=== PATIENT | female | born 1955 | race Two or more races ===

== ENCOUNTER 2023-10-15 13:37 | Inpatient (IN) | payer OTHER ==
[~2023-10-15] VITALS: Ht 152.4 cm; Wt 77.6 kg
[2023-10-15 14:15] VITALS: RESP 18; O2SAT 89
[2023-10-15] MEDS: MORPHINE SULFATE INJ 2 MG/ml SYRG IV ONE ×2 (15:02→21:24)
[2023-10-15] MEDS: ONDANSETRON HCL 4 MG/2 ML VIAL IV ONE ×2 (15:03→21:23)
[2023-10-15 15:23] LABS: Basophils # (auto) 0 10 ^3/uL (0-0.2); Basophils % (auto) 0.2 % (0.0-2.0); Eosinophils # (auto) 0.1 10 ^3/uL (0-0.8); Eosinophils % (auto) 0.7 % (0.0-7.0); Hematocrit 39.2 % (36.0-46.0); Hemoglobin 12.9 g/dL (12.2-16.2); Lymphocytes # (auto) 1.1 10 ^3/uL (0.4-5.4); Lymphocytes % (auto) 11.8 % (10.0-50.0); Mean Corpuscular Hemoglobin 28.9 pg (28.0-32.0); Mean Corpuscular Hgb Conc. 32.8 g/dL (32.0-36.0); Mean Corpuscular Volume 88.1 fL (80.0-100.0); Monocytes # (auto) 0.6 10 ^3/uL (0-1.3); Monocytes % (auto) 6.2 % (0.0-12.0); Neutrophils # (auto) 7.7 10 ^3/uL (1.6-8.6); Neutrophils % (auto) 81.1 % (37.0-80.0); Red Blood Cells 4.45 10^6/uL (4.0-5.20); Red Cell Distribution Width 13.6 % (11.8-14.3); White Blood Cell 9.5 10^3/uL (4.4-10.8)
[2023-10-15 15:39] LABS: Alanine Aminotransferase 42 U/L (7-40); Albumin 4.3 g/dL (3.2-4.8); Alkaline Phosphatase 172 U/L (46-116); Anion Gap 8 (5-15); Aspartate Aminotransferase 32 U/L (13-40); BUN/Creatinine Ratio 18.1 (10.0-20.0); Bilirubin, Total 0.7 mg/dL (0.2-1.0); Blood Urea Nitrogen 13 mg/dL (9-23); Calcium 9.6 mg/dL (8.5-10.1); Carbon Dioxide 28 mmol/L (20-30); Chloride 105 mmol/L (98-107); Glucose 86 mg/dL (74-106); Potassium 3.4 mmol/L (3.5-5.1); Sodium 141 mmol/L (136-145); Total Protein 6.8 g/dL (5.7-8.2)
[2023-10-15] MEDS ORDERED: DEXTROSE 10% 1,000 ML IV SCH (16:00)
[2023-10-15 16:10] LABS: Urine Bacteria None Seen /hpf (None Seen)
[2023-10-15] MEDS: DEXTROSE 10% 1,000 ML IV ONE (16:16)
[2023-10-15 16:24] LABS: Urine Blood Negative /uL (Negative); Urine Clarity Clear (Clear); Urine Color Colorless (Yellow); Urine Hyaline Cast FEW /lpf (0 - 2); Urine Protein, UAD Negative (Negative); Urine Specific Gravity 1.006 (1.001-1.035); Urine Urobilinogen Normal (Negative); Urine WBC 1 /hpf (0 - 5); Urine pH 6.5 (5.0-9.0)
[2023-10-15] MEDS ORDERED: MORPHINE SULFATE INJ 2 MG/ml SYRG IV PRN (17:30)
[2023-10-15] MEDS ORDERED: NITROGLYCERIN 0.4 MG SL TAB SL PRN (17:30)
[2023-10-15] MEDS ORDERED: DEXTROSE (50%) 50ML SYRG IV PRN (17:30)
[2023-10-15] MEDS ORDERED: FURO40TA4 PO (18:30)
[2023-10-15] MEDS ORDERED: RANO500T3 PO (18:30)
[2023-10-15] MEDS ORDERED: DICY10CA PO (18:30)
[2023-10-15] MEDS ORDERED: ATOR40TA52 PO (18:30)
[2023-10-15] MEDS ORDERED: DICY20TA PO (18:30)
[2023-10-15] MEDS ORDERED: NAP500T PO (18:30)
[2023-10-15] MEDS ORDERED: LISI-285 PO (18:30)
[2023-10-15] MEDS ORDERED: GABA-1250 PO (18:30)
[2023-10-15] MEDS ORDERED: PANT40T PO (18:30)
[2023-10-15] MEDS ORDERED: METO5TAB2 PO (18:30)
[2023-10-15] MEDS ORDERED: NEBI5TAB13 PO (18:30)
[2023-10-15] MEDS ORDERED: ASPI-325 PO (18:30)
[2023-10-15] MEDS ORDERED: LINA290C PO (18:30)
[2023-10-15] MEDS ORDERED: SUCR1TAB PO (18:30)
[2023-10-15] MEDS ORDERED: hydrALAZINE HCL 20 MG/ML VL IV PRN (18:30)
[2023-10-15] MEDS ORDERED: FLUT1INH6 INH (18:30)
[2023-10-15 19:13] LABS: Triglycerides 112 mg/dL (< 150)
[2023-10-15 19:14] LABS: LDL Cholesterol 74 mg/dL (< 100)
[2023-10-15 19:15] LABS: Cholesterol 148 mg/dL (< 200); HDL Cholesterol 57 mg/dL (40-59)
[2023-10-15 20:00] VITALS: PULSE 84; RESP 14; O2SAT 99
[2023-10-15] MEDS: POTASSIUM EFFERVESENT TAB 25 MEQ PO ONE (20:36)
[2023-10-15] MEDS: ACETAMINOPHEN 325 MG TAB PO PRN (20:44)
[2023-10-15] MEDS: hydrALAZINE HCL 20 MG/ML VL ONE (20:54)
[2023-10-15] MEDS: PANTOPRAZOLE 40 MG TAB PO SCH (22:00)
[2023-10-15 22:19] VITALS: BP 148/42; PULSE 73; RESP 16; TEMP 98.2; O2SAT 100; O2SAT 99
[2023-10-15] MEDS: GABAPENTIN 300 MG CAP PO SCH (22:48)
[2023-10-15] MEDS: RANOLAZINE ER 500 MG TAB PO SCH (22:48)
[2023-10-15] MEDS: NAPROXEN 500 MG TAB PO SCH (22:48)
[2023-10-15] MEDS: ACCU-CHEK COMFORT CURVE STRIP VI SCH (22:49)
[2023-10-15] MEDS: METOPROLOL TARTRATE 25 MG TAB PO SCH (22:49)
[2023-10-15] MEDS: InsuLIN REG 1unit/0.01ml Soln (100units/ml) SC SCH (23:13)
[2023-10-16] VITALS (8 sets, daily range): BP systolic 107–161; BP diastolic 40–72; PULSE 18–98; RESP 16–21; TEMP 98.1–98.8; O2SAT 91–98
[2023-10-16] MEDS: SUCRALFATE 1 GM TAB PO SCH (06:15)
[2023-10-16 06:46] LABS: Albumin 3.7 g/dL (3.2-4.8); Alkaline Phosphatase 137 U/L (46-116); Anion Gap 6 (5-15); Aspartate Aminotransferase 46 U/L (13-40); Calcium 9.3 mg/dL (8.5-10.1); Carbon Dioxide 28 mmol/L (20-30); Chloride 103 mmol/L (98-107); Glucose 73 mg/dL (74-106); Sodium 137 mmol/L (136-145); Total Protein 6.4 g/dL (5.7-8.2)
[2023-10-16 06:51] LABS: Alanine Aminotransferase 31 U/L (7-40); BUN/Creatinine Ratio 9.8 (10.0-20.0); Bilirubin, Total 0.7 mg/dL (0.2-1.0); Blood Urea Nitrogen 8 mg/dL (9-23); Potassium 4.8 mmol/L (3.5-5.1)
[2023-10-16 07:56] LABS: Basophils # (auto) 0 10 ^3/uL (0-0.2); Basophils % (auto) 0.5 % (0.0-2.0); Eosinophils # (auto) 0.1 10 ^3/uL (0-0.8); Eosinophils % (auto) 3.2 % (0.0-7.0); Hematocrit 36.5 % (36.0-46.0); Lymphocytes # (auto) 1.1 10 ^3/uL (0.4-5.4); Lymphocytes % (auto) 23.5 % (10.0-50.0); Monocytes # (auto) 0.4 10 ^3/uL (0-1.3); Monocytes % (auto) 8.2 % (0.0-12.0); Neutrophils % (auto) 64.6 % (37.0-80.0); Red Blood Cells 4.15 10^6/uL (4.0-5.20); Red Cell Distribution Width 13.5 % (11.8-14.3); White Blood Cell 4.7 10^3/uL (4.4-10.8)
[2023-10-16] MEDS: ENOXAPARIN SOD 40 MG/0.4 ML SYRINGE SC SCH (09:39)
[2023-10-16] MEDS: ASPirin-EC 81 mg tab PO SCH (09:39)
[2023-10-16] MEDS: LISINOPRIL 20 MG TAB PO SCH (09:40)
[2023-10-16] MEDS: ATORVASTATIN 20 MG TAB PO SCH (09:40)
[2023-10-16] MEDS: hydroCHLOROthiazide 25 MG TAB PO SCH (09:42)
[2023-10-16] MEDS: FUROSEMIDE 40 MG TAB PO SCH (09:43)
[2023-10-16] MEDS: LINZESS 290MCG CAPSULE PO SCH (10:00)
[2023-10-16] MEDS ORDERED: PATIENTS OWN MEDICATION (Lisinopril & Hydrochlorothiazi (Lisinopril/Hydrochlorothi) 1 TAB) PO SCH (10:00)
[2023-10-16] MEDS: DICYCLOMINE HCL 10 MG CAP PO PRN (20:01)
[2023-10-17] VITALS (10 sets, daily range): BP systolic 108–152; BP diastolic 29–71; PULSE 69–83; RESP 18–21; TEMP 97.9–98.7; O2SAT 90–96
[2023-10-17] MEDS: DOCUSATE SOD 100 MG CAP PO PRN (06:31)
[2023-10-17] MEDS: LACTULOSE 20Gm/30ML SOLN PO ONE (11:55)
[2023-10-17] MEDS: INSULIN LANTUS (GLARGINE) 1 /0.01ml (100units/ml) SC SCH (21:17)
[2023-10-18] VITALS (7 sets, daily range): BP systolic 94–131; BP diastolic 34–68; PULSE 63–77; RESP 16–20; TEMP 97.3–98.1; O2SAT 90–93
[2023-10-18 09:52] LABS: Hepatitis B Surface Antigen Negative (Negative)
[2023-10-18 10:13] LABS: Hepatitis C Antibody Negative (Negative)
== END 2023-10-18 17:18 | disposition home or self-care (01) | DRG 639 ==
LOC: ER 13:37 → EDBD 13:37 → TELE 17:34 → TELE-WESTW 21:58
PROVIDERS: ADMIT Nurse Practitioner Family; ATTEND Family Medicine
DX: E11.649 Type 2 diabetes mellitus with hypoglycemia without coma (principal); I65.23 Occlusion and stenosis of bilateral carotid arteries; E87.6 Hypokalemia; I10 Essential (primary) hypertension; E66.01 Morbid (severe) obesity due to excess calories; E86.0 Dehydration; R74.8 Abnormal levels of other serum enzymes; Z88.0 Allergy status to penicillin; Z91.148 Patient's other noncompliance with medication regimen for other reason; Z95.2 Presence of prosthetic heart valve; Z68.33 Body mass index [BMI] 33.0-33.9, adult; Z83.3 Family history of diabetes mellitus; Z82.49 Family history of ischemic heart disease and other diseases of the circulatory system; Z80.9 Family history of malignant neoplasm, unspecified
CPT/HCPCS: 36415; 70450; 72125; 76705; 80053; 80061; 81001; 82962; 83036; 84443; 85025; 86803; 87340; 93005; 93306; 93886; 96361; 96374; 96375; 97116; 97163; 97530; G0378; J1815; J2405

== ENCOUNTER 2024-05-31 14:53 | Inpatient (IN) | payer OTHER, MEDICAID ==
[~2024-05-31] VITALS: Ht 152.4 cm; Wt 71.5 kg
[~2024-05-31 14:53] MED LIST: ASPI-325 PO; ATOR40TA52 PO; DICY10CA PO; DICY20TA PO; FLUT1INH6 INH; FURO40TA4 PO; GABA-1250 PO; LINA290C PO; LISI-285 PO; METO5TAB2 PO; NAP500T PO; NEBI5TAB13 PO; PANT40T PO; RANO500T3 PO; SUCR1TAB PO
--- NOTE | 2024-05-31 15:26 | ECG ---
[facility] Test Date: 2024-05-31 Test Time: 15:17:32 Pat Name: CHRISTOPHER VILLARREAL Department: ER Room: 0240 Gender: F Collateral Clerk: GP : 1955 Requested By: PRATEEK NIX Order Number: [id number] Reading MD: Jose Antonio Santana Measurements Intervals [place] Rate: 86 P: 49 UT: 127 QRS: 16 QRSD: 93 T: 17 QT: 374 QTc: 448 Interpretive Statements Sinus rhythm Left ventricular hypertrophy Electronically Signed On 06-02-2024 10:26:08 PST by Jose Antonio Santana Please click the below link to view image of tracing.
[2024-05-31 15:47] LABS: Urine Bacteria None Seen /hpf (None Seen)
--- NOTE | 2024-05-31 15:55 | DVH ---
CHEST RADIOGRAPH Indication: CP Technique: Single frontal view of the chest was obtained Comparison: None FINDINGS: Lines and Tubes: None. Midline sternotomy wires. Lungs: No focal consolidation. Pleura: No effusion. No pneumothorax. Cardiomediastinal contours: Unremarkable Bones: No acute osseous abnormality. IMPRESSION: 1. No radiographic evidence of acute cardiopulmonary disease. HS:Y
[2024-05-31 16:15] LABS: Urine Blood Negative /uL (Negative); Urine Clarity Clear (Clear); Urine Color Light-Yellow (Yellow); Urine Protein, UAD Negative (Negative); Urine Specific Gravity 1.012 (1.001-1.035); Urine Urobilinogen Normal (Negative); Urine WBC 1 /hpf (0 - 5)
[2024-05-31 16:38] LABS: Basophils # (auto) 0 10 ^3/uL (0-0.2); Basophils % (auto) 0.4 % (0.0-2.0); Eosinophils # (auto) 0.1 10 ^3/uL (0-0.8); Eosinophils % (auto) 1.5 % (0.0-7.0); Hematocrit 37.5 % (36.0-46.0); Hemoglobin 12.1 g/dL (12.2-16.2); Lymphocytes # (auto) 1.1 10 ^3/uL (0.4-5.4); Mean Corpuscular Hemoglobin 29.2 pg (28.0-32.0); Mean Corpuscular Hgb Conc. 32.4 g/dL (32.0-36.0); Monocytes # (auto) 0.6 10 ^3/uL (0-1.3); Monocytes % (auto) 7.6 % (0.0-12.0); Neutrophils # (auto) 5.8 10 ^3/uL (1.6-8.6); Neutrophils % (auto) 76.5 % (37.0-80.0); Nucleated Red Blood Cells % 0.1 %; Platelet Count (auto) 276 10^3/uL (140-450); Red Blood Cells 4.16 10^6/uL (4.0-5.20); Red Cell Distribution Width 13.7 % (11.8-14.3); White Blood Cell 7.6 10^3/uL (4.4-10.8)
[2024-05-31 16:55] LABS: Albumin 4.1 g/dL (3.2-4.8); Anion Gap 8 (5-15); Aspartate Aminotransferase 37 U/L (13-40); BUN/Creatinine Ratio 24.1 (10.0-20.0); Bilirubin, Total 0.4 mg/dL (0.2-1.0); Blood Urea Nitrogen 19 mg/dL (9-23); Calcium 10.1 mg/dL (8.7-10.4); Carbon Dioxide 28 mmol/L (20-31); Chloride 100 mmol/L (98-107); Potassium 4.1 mmol/L (3.5-5.1); Sodium 136 mmol/L (136-145)
[2024-05-31 16:56] LABS: Total Protein 6.5 g/dL (5.7-8.2)
[2024-05-31 16:59] LABS: Alanine Aminotransferase 57 U/L (7-40); Alkaline Phosphatase 185 U/L (46-116); Glucose 323 mg/dL (74-106)
--- NOTE | 2024-05-31 18:19 | ED.PDOC ---
GI ASSESSMENT HPI Comments 68 Y F, with PMHX of HTN, and DM presents to the ED with CC or nausea and vomiting. Patient states that shes has been experiencing nausea and vomiting for x3 months; with associated symptoms of epigastric discomfort. Patient relays, that she has has difficulty eating and feels as if she were choking every time she consumes food. Patient denies any cough, nasal congestion, chills, or fever. Chief Complaint: Nausea/Vomiting Time Seen by MD: 06:00 Primary Care Provider: ? Reviewed Notes: Nurses Notes, Medications, Allergies Allergies: Coded Allergies: Penicillins (Verified Allergy, Unknown, 10/15/23) Home Meds Reported Medications Aspirin (Aspirin Low Dose) 81 Mg Tab, 1 TAB PO DAILY 10/15/23 Naproxen (NAPROSYN TABLET) 500 Mg Tb, 1 TAB PO BID 10/15/23 Furosemide (Furosemide) 40 Mg Tab, 1 TAB PO DAILY 10/15/23 Nebivolol HCl (Nebivolol Hydrochloride) 5 Mg Tab, 1 TAB PO DAILY 10/15/23 Dicyclomine Hcl (Dicyclomine Hcl) 20 Mg Tab, TAB PO 10/15/23 Atorvastatin Calcium (ATORVASTATIN CALCIUM) 40 Mg Tab, 1 TAB PO DAILY 10/15/23 Metoclopramide Hcl (Metoclopramide Hcl) 5 Mg Tab, 1 TAB PO QID 10/15/23 Gabapentin (Gabapentin) 300 Mg Cap, 1 CAP PO TID 10/15/23 Pantoprazole Sodium Sesquihydr (Pantoprazole Sodium) 40 Mg Tab, 1 TAB PO BID 10/15/23 Dicyclomine Hcl (BENTYL CAPSULE) 10 Mg Cp, 1 CAP PO Q6HPRN PRN 10/15/23 Fluticasone Furoate-Vilanterol (Breo Ellipta 200-25 Mcg/INH) 1 Inh Inh, 1 PUFF INH DAILY 10/15/23 Lisinopril & Hydrochlorothiazi (Lisinopril/Hydrochlorothi) 1 Tab Tab, 1 TAB PO DAILY 10/15/23 Sucralfate (Sucralfate) 1 Gm Tab, 1 TAB PO BID 10/15/23 Linaclotide Base (LINZESS) 290 Mcg Cap, 1 CAP PO DAILY 10/15/23 Ranolazine (Ranolazine ER) 500 Mg Tab, 1 TAB PO BID 10/15/23 Information Source: Patient Mode of Arrival: Ambulatory Duration: Days Prehospital treatment: None Quality: None Vomitus: Watery Severity: Mild Recent: None Recent Hx of: None Pain Location: None Modifying Factors: Nothing Associated sign and symptoms: None Past Medical History PAST MEDICAL HISTORY: DM, HTN TAP DANCER History: Denies all TAP DANCER Hx Family History Family History: Unknown Social History Smoker: Non-Smoker Alcohol: Denies ETOH Use Drugs: Denies Drug Use Lives In: Home Constitutional: denies: chills, diaphoresis, fatigue, fever, malaise, sweats, weakness, others EENTM: denies: blurred vision, double vision, ear bleeding, ear discharge, ear drainage, ear pain, ear ringing, eye pain, eye redness, hearing loss, mouth pain, mouth swelling, nasal discharge, nose bleeding, nose congestion, nose pain, photophobia, tearing, throat pain, throat swelling, voice changes, others Respiratory: denies: cough, hemoptysis, orthopnea, SOB at rest, shortness of breath, SOB with excertion, stridor, wheezing, others Cardiovascular: denies: chest pain, dizzy spells, diaphoresis, Dyspnea on exertion, edema, irregular heart beat, left arm pain, lightheadedness, palpitations, PND, syncope, others Gastrointestinal: reports: nausea, poor appetite, vomiting; denies: abdomen distended, abdominal pain, blood streaked bowels, constipated, diarrhea, dysphagia, difficulty swallowing, hematemesis, melena, poor fluid intake, rectal bleeding, rectal pain, others Genitourinary: denies: abnormal vagina bleeding, burning, dyspareunia, dysuria, flank pain, frequency, hematuria, incontinence, pain, , vagina discharge, urgency, others Neurological: denies: dizziness, fainting, headache, left sided numbness, left sided weakness, numbness, paresthesia, pre-existing deficit, right sided num bness, right sided weakness, seizure, speech problems, tingling, tremors, weakness, others Musculoskeletal: denies: back pain, gout, joint pain, joint swelling, muscle pain, muscle stiffness, neck pain, others Integumetry: denies: bruises, change in color, change in hair/nails, dryness, laceration, lesions, lumps, rash, wounds, others Allergic/Immunocompromised: denies: Difficulty Healing, Frequent Infections, Hives, Itching, others Hematologic/Lymphatic: denies: anemia, blood clots, easy bleeding, easy bruising, swollen glands, others Endocrine: denies: excessive hunger, excessive sweating, excessive thirst, excessive urination, flushing, intolerance to cold, intolerance to heat, unexplained weight gain, unexplained weight loss, others Psychiatric: denies: anxiety, bipolar disorder, depression, hopeless, panic disorder, schizophrenia, sleepless, suicidal, others Physical Exam General Appearance: No Apparent Distress, Normal HEENT: Normal ENT Inspection, Pharynx Normal, TMs Normal Neck: Full Range of Motion, Non-Tender, Normal, Normal Inspection Respiratory: Chest Non-Tender, Lungs Clear, No Accessory Muscle Use, No Respiratory Distress, Normal Breath Sounds Cardiovascular: No Edema, No JVD, No Murmur, No Gallop, Normal Peripheral Pulses, Regular Rate/Rhythm Breast Exam: Deferred Gastrointestinal: No Organomegaly, Non Tender, No Pulsatile Mass, Normal Bowel Sounds, Soft Genitalia: Deferred Pelvic: Deferred Rectal: Deferred Extremities: No calf tenderness, Normal capillary refill, Normal inspection, Normal range of motion, Non-tender, No pedal edema Musculoskeletal : Apperance: Normal Neurologic: Alert, cover remover II-XII nml as Tested, No Motor Deficits, Normal Affect, Normal Mood, No Sensory Deficits Cerebellar Function: Normal Reflexes: Normal Skin: Dry, Normal Color, Warm Lymphatic: No Adenopathy Was a procedure done? Was a procedure done?: No GI differential Dx Differential Diagnosis: Appendicitis, Gastritis/PUD, Gastroenteritis, Bacteria l, Viral X-Ray, Labs, Meds, VS Vital Signs Date Time Temp Pulse Resp B/P (MAP) Pulse Ox O2 Delivery O2 Flow Rate FiO2 05/31/24 15:17 86 05/31/24 15:05 98.2 85 18 136/53 (80) 92 Lab Test 05/31/24 17:05 05/31/24 16:04 05/31/24 15:10 Range/Units Troponin I High Sensitivity 119 *H 112 *H </=34 ng/L White Blood Count 7.6 4.4-10.8 10^3/uL Red Blood Count 4.16 4.0-5.20 10^6/uL Hemoglobin 12.1 L 12.2-16.2 g/dL Hematocrit 37.5 36.0-46.0 % Mean Corpuscular Volume 90.0 80.0-100.0 fL Mean Corpuscular Hemoglobin 29.2 28.0-32.0 pg Mean Corpuscular Hemoglobin Concent 32.4 32.0-36.0 g/dL Red Cell Distribution Width 13.7 11.8-14.3 % Platelet Count 276 140-450 10^3/uL Mean Platelet Volume 9.2 6.9-10.8 fL Neutrophils (%) (Auto) 76.5 37.0-80.0 % Lymphocytes (%) (Auto) 14.0 10.0-50.0 % Monocytes (%) (Auto) 7.6 0.0-12.0 % Eosinophils (%) (Auto) 1.5 0.0-7.0 % Basophils (%) (Auto) 0.4 0.0-2.0 % Neutrophils # (Auto) 5.8 1.6-8.6 10 ^3/uL Lymphocytes # (Auto) 1.1 0.4-5.4 10 ^3/uL Monocytes # (Auto) 0.6 0-1.3 10 ^3/uL Eosinophils # (Auto) 0.1 0-0.8 10 ^3/uL Basophils # (Auto) 0 0-0.2 10 ^3/uL Nucleated Red Blood Cells 0.1 % Sodium Level 136 136-145 mmol/L Potassium Level 4.1 3.5-5.1 mmol/L Chloride Level 100 98-107 mmol/L Carbon Dioxide Level 28 20-31 mmol/L Anion Gap 8 5-15 Blood Urea Nitrogen 19 9-23 mg/dL Creatinine 0.79 0.550-1.02 mg/dL Glomerular Filtration Rate Calc 80 >90 mL/min BUN/Creatinine Ratio 24.1 H 10.0-20.0 Serum Glucose 323 H 74-106 mg/dL Calcium Level 10.1 8.7-10.4 mg/dL Total Bilirubin 0.4 0.2-1.0 mg/dL Aspartate Amino Transferase (AST) 37 13-40 U/L Alanine Aminotransferase (ALT) 57 H 7-40 U/L Alkaline Phosphatase 185 H 46-116 U/L Total Protein 6.5 5.7-8.2 g/dL Albumin 4.1 3.2-4.8 g/dL Urine Color Light-yellow Yellow Urine Clarity Clear Clear Urine pH 7.0 5.0-9.0 Urine Specific [place] 1.012 1.001-1.035 Urine Protein Negative Negative Urine Ketones Negative Negative Urine Blood Negative Negative /uL Urine Nitrite Negative Negative Urine Bilirubin Negative Negative Urine Urobilinogen Normal Negative mg/dL Urine Leukocyte Esterase Negative Negative /uL Urine RBC <1 0 - 4 /hpf Urine WBC 1 0 - 5 /hpf Urine Squamous Epithelial Cells Few <5 /hpf Urine Bacteria None seen None Seen /hpf Urine Glucose 3+ H Normal mg/dL X-Ray, Labs, Meds, VS Comment Imaging: X-rays and CT scans were reviewed and interpreted by this provider, imaging shows no fractures and no pathological disease. Pending radiology review. Laboratory: Labs reviewed and interpreted by this provider. Elevated troponins and elevated blood sugar Patient will be admitted for cardiology consult in the morning Patient has prior medical visits reviewed. Med reconciliation performed Vital signs reviewed Time of 1ST Reevaluation: 06:30 Reevaluation 1ST: Unchanged Patient Education/Counseling: Diagnosis, Treatment Family Education/Counseling: Diagnosis, Treatment Departure 1 Departure Time of Disposition: 19:11 Impression: Primary Impression: Hyperglycemia Additional Impressions: ACS (acute coronary syndrome) Elevated troponin GERD (gastroesophageal reflux disease) Qualified Codes: K21.9 - Gastro-esophageal reflux disease without esophagitis Disposition: 09 ADMITTED INPATIENT Condition: Stable Discharged With: Self Critical Care Note Critical Care Time?: No Stability Stability form required: No Heart Score Heart Score: Heart Score Response (Comments) Value History N/A 0 EKG N/A 0 Age N/A 0 Risk Factors N/A 0 Troponin N/A 0 Total 0 I personally scribed for PRATEEK NIX ([email or web address]) on 05/31/24 at 18:19. Electronically submitted by Alla Ibarra ([email or web address]). PRATEEK NIX May 31, 2024 18:19
--- NOTE | 2024-05-31 22:43 | DVHHP2 ---
History of Present Illness Reason for Visit: Dysphagia History of Present Illness 68-year-old female presents for evaluation of dysphagia. Patient endorses a day three-month history of worsening symptoms. She reports recently being seen at [facility]. She underwent an en doscopy and was told there was nothing wrong with her. She reports difficulty swallowing and regurgitation shortly after eating. She states that when the symptoms are ongoing she has mild left-sided chest pressure. Currently she denies any chest pain or shortness for breath. Denies any other acute complaints at the moment. Past Medical History Hypertension, diabetes mellitus, coronary artery disease Past Surgical History CABG Family History Noncontributory Smoke: No ALCOHOL: none Drugs: None Lives: with Family Review of Systems Review of Systems Review of systems are currently negative otherwise dressing HPI. Allergies: Coded Allergies: Penicillins (Verified Allergy, Unknown, 10/15/23) Exam Vital Signs Vital Signs Date Time Temp Pulse Resp B/P (MAP) Pulse Ox O2 Delivery O2 Flow Rate FiO2 05/31/24 21:50 Room Air* 0 21 05/31/24 20:37 98.5 72 16 152/65 (94) 93 98.5 Exam Gen: 68-year-old female mild distress. Skin: Warm, dry, normal color and texture, no rash. HEENT: Normocephalic atraumatic, mucous membranes moist and pink. Neck: Cervical and supraclavicular nodes normal without enlargement, trachea is midline, thyroid gland is normal without masses. Pulmonary: Clear to auscultation and percussion bilaterally. Cardiac: Regular rate and rhythm. No murmur Abdomen: Soft, nontender, nondistended, bowel sounds present all 4 quadrants, no guarding, no rigidity, no organomegaly. Extremities: No cyanosis, clubbing, no edema Neuro: Cranial nerves II through XII grossly intact, normal affect and speech, no focal motor deficits. Labs/Xrays ORDERING PHYSICIAN: PRATEEK NIX PROCEDURE(s): CXR1 - CHEST XRAY 1 VIEW REASON: CP ORDER NUMBER(s): [id number], ACCESSION NUMBER(s): [id number] CHEST RADIOGRAPH Indication: CP Technique: Single frontal view of the chest was obtained Comparison: None FINDINGS: Lines and Tubes: None. Midline sternotomy wires. Lungs: No focal consolidation. Pleura: No effusion. No pneumothorax. Cardiomediastinal contours: Unremarkable Bones: No acute osseous abnormality. IMPRESSION: 1. No radiographic evidence of acute cardiopulmonary disease. HS:Y Labs Test 05/31/24 20:08 05/31/24 16:04 05/31/24 15:10 Range/Units Troponin I High Sensitivity 114 *H </=34 ng/L White Blood Count 7.6 4.4-10.8 10^3/uL Red Blood Count 4.16 4.0-5.20 10^6/uL Hemoglobin 12.1 L 12.2-16.2 g/dL Hematocrit 37.5 36.0-46.0 % Mean Corpuscular Volume 90.0 80.0-100.0 fL Mean Corpuscular Hemoglobin 29.2 28.0-32.0 pg Mean Corpuscular Hemoglobin Concent 32.4 32.0-36.0 g/dL Red Cell Distribution Width 13.7 11.8-14.3 % Platelet Count 276 140-450 10^3/uL Mean Platelet Volume 9.2 6.9-10.8 fL Neutrophils (%) (Auto) 76.5 37.0-80.0 % Lymphocytes (%) (Auto) 14.0 10.0-50.0 % Monocytes (%) (Auto) 7.6 0.0-12.0 % Eosinophils (%) (Auto) 1.5 0.0-7.0 % Basophils (%) (Auto) 0.4 0.0-2.0 % Neutrophils # (Auto) 5.8 1.6-8.6 10 ^3/uL Lymphocytes # (Auto) 1.1 0.4-5.4 10 ^3/uL Monocytes # (Auto) 0.6 0-1.3 10 ^3/uL Eosinophils # (Auto) 0.1 0-0.8 10 ^3/uL Basophils # (Auto) 0 0-0.2 10 ^3/uL Nucleated Red Blood Cells 0.1 % Sodium Level 136 136-145 mmol/L Potassium Level 4.1 3.5-5.1 mmol/L Chloride Level 100 98-107 mmol/L Carbon Dioxide Level 28 20-31 mmol/L Anion Gap 8 5-15 Blood Urea Nitrogen 19 9-23 mg/dL Creatinine 0.79 0.550-1.02 mg/dL Glomerular Filtration Rate Calc 80 >90 mL/min BUN/Creatinine Ratio 24.1 H 10.0-20.0 Serum Glucose 323 H 74-106 mg/dL Calcium Level 10.1 8.7-10.4 mg/dL Total Bilirubin 0.4 0.2-1.0 mg/dL Aspartate Amino Transferase (AST) 37 13-40 U/L Alanine Aminotransferase (ALT) 57 H 7-40 U/L Alkaline Phosphatase 185 H 46-116 U/L Total Protein 6.5 5.7-8.2 g/dL Albumin 4.1 3.2-4.8 g/dL Urine Color Light-yellow Yellow Urine Clarity Clear Clear Urine pH 7.0 5.0-9.0 Urine Specific [place] 1.012 1.001-1.035 Urine Protein Negative Negative Urine Ketones Negative Negative Urine Blood Negative Negative /uL Urine Nitrite Negative Negative Urine Bilirubin Negative Negative Urine Urobilinogen Normal Negative mg/dL Urine Leukocyte Esterase Negative Negative /uL Urine RBC <1 0 - 4 /hpf Urine WBC 1 0 - 5 /hpf Urine Squamous Epithelial Cells Few <5 /hpf Urine Bacteria None seen None Seen /hpf Urine Glucose 3+ H Normal mg/dL Assessment/Plan Assessment/Plan Assessment Elevated troponin rule out NSTEMI Dysphagia Hypertension Status post CABG Plan Admit the patient to telemetry to the hospitalist Echocardiogram pending GI consultation Resume home medications Continue treatment per orders. Plan discussed with: Patient My Orders Orders - RINA DAVIES AGACNP Procedure Category Date Status Time Aspirin Tablet PHA 06/01/24 Verified 10:00 Atorvastatin (Lipitor) PHA 06/01/24 Verified 22:00 Furosemide Tablet PHA 06/01/24 Verified (Lasix Tablet) 10:00 Ranolazine (Ranexa Er) PHA 06/01/24 Verified 10:00 Lisinopril Tablet PHA 06/01/24 Verified (Zestril Tablet) 10:00 * [facility] [employer] Vehicle Operations Instructor CONS 05/31/24 Verified 22:32 Admit ADMIT 05/31/24 Verified 22:32 Temazepam (Restoril) PHA 05/31/24 Verified 22:45 Ondansetron Hcl PHA 05/31/24 Verified (Zofran) 22:45 Enoxaparin Sodium PHA 06/01/24 Verified (Lovenox) 10:00 Echo 2d Mode Cardiac US 05/31/24 Verified DOP 22:32 Condition: Fair [facility] 05/31/24 Verified 22:32 Bedrest With Bathroom [facility] 05/31/24 Verified Privileg 22:32 Nitroglycerin [facility] 05/31/24 Verified Sublingual (Ntrostat 22:45 Morphine Sulfate PHA 05/31/24 Verified Injection 22:45 Stat Ekg For Chest [facility] 05/31/24 Verified Pain 22:32 Notify Md Of Changes [facility] 05/31/24 Verified From Base 22:32 Building Maintenance Custodian For [facility] 05/31/24 Verified 24 Hours 22:32 Emergency Dysrhythmia [facility] 05/31/24 Verified Protocol 22:32 Rhythm Strips Once [facility] 05/31/24 Verified Every Shift 22:32 Oxygen By Nasal RT 05/31/24 Verified Cannula 22:32 Cardiac DIET 06/01/24 Verified Diet-2gna,Lofat,Lochol Breakfast Basic Metabolic Panel LAB 06/01/24 Verified 04:00 Date of Service: May 31, 2024 Billing Provider: RINA DAVIES Common Visit Codes: [id number] INP/OBS CARE (HIGH) RINA DAVIES May 31, 2024 22:43
[2024-05-31] MEDS ORDERED: TEMAZEPAM 15 MG CAP PO PRN (22:45)
[2024-05-31] MEDS ORDERED: MORPHINE SULFATE INJ 2 MG/ml SYRG IV PRN (22:45)
[2024-05-31] MEDS ORDERED: NITROGLYCERIN 0.4 MG SL TAB SL PRN (22:45)
[2024-06-01] MEDS: hydrALAZINE HCL 20 MG/ML VL IV PRN (04:13)
[2024-06-01] MEDS: HYDROcodone-ACET 5/325MG TAB PO PRN (04:17)
[2024-06-01] MEDS: ONDANSETRON HCL 4 MG/2 ML VIAL IV PRN (05:08)
[2024-06-01 05:51] LABS: Anion Gap 11 (5-15); Carbon Dioxide 25 mmol/L (20-31); Chloride 101 mmol/L (98-107); Sodium 137 mmol/L (136-145)
[2024-06-01 05:52] LABS: Calcium 10.2 mg/dL (8.7-10.4)
[2024-06-01 05:57] LABS: BUN/Creatinine Ratio 18.9 (10.0-20.0); Blood Urea Nitrogen 14 mg/dL (9-23); Glucose 326 mg/dL (74-106)
--- NOTE | 2024-06-01 08:02 | DVHPNRES ---
Progress Note Date Seen: Jun 01, 2024 Resident Creating Document: NHI SABILLON RESIDENT Medical Necessity Reason Pt with a Central, PICC or Fol: No Subjective Review of Systems 68-year-old female with past medical history of Hypertension, diabetes mellitus, coronary artery disease status post CABG presented with chief complaint of dysphagia intractable nausea and vomiting and unable to tolerate any food for last seven days. Patient mentioned that he had recent endoscopy done, does not remember the results. Patient also had associated low grade chest pain, that she describes a pressure-like but mentioned this was different quality of pain compared to when she had CABG. She also mentioned associated epigastric pain, and regurgitation, she is currently complaining of something stuck in the food pipe but mentions she has not eaten recently. Patient also mentioned black- colored stools on and off for few months. ROS Constitutional: No: Fever, Chills, Sweats, Weakness, Malaise, Other Eyes: No: Pain, Vision change, Conjunctivae inflammation, Eyelid inflammation, Other, Redness ENT: No: Ear pain, Ear discharge, Nose pain, Nose discharge, Nose congestion, Mouth pain, Mouth swelling, Throat pain, Throat swelling, Other Respiratory: No: Cough, Dry, Shortness of breath, SOB with excertion, Wheezing, Hemoptysis, Pleuritic Pain, Sputum, Wheezing, Other Cardiovascular: Mild chest pain No: Chest Pain, Palpitations, Orthopnea, Paroxysmal Noc. Dyspnea, Edema, Lt Headedness, Other Gastrointestinal: Nausea, vomiting, acid reflux, heartburn, regurgitation of food, dysphagia, no melena, no hematemesis Musculoskeletal: No: other, neck pain, shoulder pain, arm pain, back pain, hand pain, leg pain, foot pain Neurological:; No: Weakness, Numbness, Incoordination, Change in speech, Confusion, Seizures Objective vital signs Vital Sign Date Time Temp Pulse Resp B/P (MAP) Pulse Ox O2 Delivery O2 Flow Rate FiO2 06/01/24 06:00 100 18 122/56 (78) 98 06/01/24 03:10 Room Air* 0 21 05/31/24 20:37 98.5 98.5 medications Current Medications Medications Dose Ordered Sig/Merly Route Start Time Stop Time Status Last Admin Dose Admin Atorvastatin Calcium 40 mg HS PO 06/01/24 22:00 Furosemide 40 mg DAILY PO 06/01/24 10:00 Ranolazine 500 mg BID PO 06/01/24 10:00 Lisinopril 10 mg DAILY PO 06/01/24 10:00 Temazepam 15 mg QHSP PRN PO 05/31/24 22:45 Ondansetron HCl 4 mg Q4HP PRN IV 05/31/24 22:45 06/01/24 05:08 4 MG Enoxaparin Sodium 40 mg DAILY SC 06/01/24 10:00 Nitroglycerin 0.4 mg Q5MINP PRN SL 05/31/24 22:45 Morphine Sulfate 2 mg Q30M PRN IV 05/31/24 22:45 Hydralazine HCl 10 mg Q6HP PRN IV 06/01/24 04:15 06/01/24 04:13 10 MG Acetaminophen/ Hydrocodone Bitart 1 tab Q6HPRN PRN PO 06/01/24 04:15 06/01/24 04:17 1 TAB Aspirin 81 mg DAILY PO 06/01/24 08:00 UNV Pantoprazole Sodium 40 mg DAILY@0600 PO 06/02/24 06:00 UNV Examination Examination General Appearance: Alert, Oriented X3, Cooperative, No acute distress HEENT: EOMI Respiratory: Clear to auscultation, Normal air movement Cardiovascular: Regular rate, Normal S1, Normal S2 Abdominal: Mild epigastric tenderness Extremities: No cyanosis, No edema, Normal pulses, No tenderness/swelling Skin: No rashes, No breakdown Neuro: Normal speech and tone laboratory and microbiology Laboratory Tests 06/01/24 05:10 05/31/24 16:04 Test 06/01/24 05:10 Range/Units Serum Glucose 326 H 74-106 mg/dL Problem List/Assessment/Plan Problem List/Assessment/Plan Assessment/plan #Dysphagia -Protonix p.o. b.i.d. Carafate 1 g q.i.d. -gi consulted, we will consider endoscopy once Cardiology clears -CT abd/pelvis without contrast revealed 1. There is no acute process in the abdomen and pelvis. 2. Small hiatal hernia. 3. Sigmoid diverticulosis without evidence of acute diverticulitis. #GI bleed, likely upper GI bleed considering Melena -IV Protonix -avoid NSAIDs -monitor CBC --CT abd/pelvis without contrast revealed 1. There is no acute process in the abdomen and pelvis. 2. Small hiatal hernia. 3. Sigmoid diverticulosis without evidence of acute diverticulitis. # diverticulosis without diverticulitis -monitor #GERD -Protonix 40mg bid oral -gi consulted #chest pain, likely GI cause -ekg unremarkable -trops -CXR -protonix 40 mg b.i.d. #CAD, history of CABG -hold aspirin considering GI bleed -continue statins, ranolazine # hypertensive urgency -IV hydralazine q.6 p.r.n. -continue home medication #Elevated trops likely NSTEMI -likely due to hypertensive urgency #?HFpEF likely ischemic -continue home meds -repeat Echo #history of valve repair -monitor #DM2 -sliding scale insulin, insulin long-acting plus pre meal, covering basal bolus #Morbid obesity -Counseling for cessation #bilateral carotid artery stenosis -asymptomatic DVT prophylaxis on hold considering possible upper GI bleed Code status discussed with the patient for >21min: FULL CODE Case discussion with Dr. Milan Plan discussed with: Patient, Other My Orders My Orders Orders - NHI SABILLON RESIDENT Procedure Category Date Status Time Aspirin Tablet PHA 06/01/24 Logged 08:00 Pantoprazole Tablet PHA 06/01/24 Logged (Protonix Tablet) 08:00 Pantoprazole Tablet PHA 06/02/24 Logged (Protonix Tablet) 06:00 Date of Service: Jun 01, 2024 Billing Provider: JAYLIN MILAN MD Common Visit Codes: [id number] INP/OBS CARE(HIGH) Coding Comment Comment Attending Attestation I saw and evaluated the patient. I reviewed the residents note and agree with findings and plan as documented in the residents note except as documented below. CAD s/p CABG GERD dysphagia IDDM HTN HLD obtain EGD result GI consult appreciated cardio for clearance basal bolus insulin resume home meds possible repeat EGD NHI SABILLON RESIDENT Jun 01, 2024 08:02 JAYLIN MILAN MD Jun 02, 2024 08:09
[2024-06-01] MEDS: PANTOPRAZOLE 40 MG TAB PO ONE (08:35)
[2024-06-01] MEDS: ASPirin 81 mg TAB PO SCH (08:36)
[2024-06-01] MEDS ORDERED: PANTOPRAZOLE 40 MG/10 ML VIAL INJ IV ONE (09:00)
[2024-06-01 09:40] VITALS: PULSE 92; RESP 17; O2SAT 95
[2024-06-01] MEDS ORDERED: ASPirin 81 mg TAB PO SCH (10:00)
--- NOTE | 2024-06-01 10:02 | DVHINCON2 ---
Date of service: Jun 01, 2024 Referring Physician Addy Barber Reason for Consultation Atypical Chest pain and GERD History of Present Illness 68-year-old female presents for evaluation of dysphagia. Patient endorses a day three-month history of worsening symptoms. She reports recently being seen at [facility]. She underwent an endoscopy and was told there was nothing wrong with her. She reports difficulty swallowing and regurgitation shortly after eating. She states that when the symptoms are ongoing she has mild left-sided chest pressure. Currently she denies any chest pain or shortness for breath. Denies any other acute complaints at the moment. Patient is leaning over the counter and states that she gets frequent heartburn and abdominal and atypical chest pain Her last liver ultrasound in October of 2023 did not show any gallbladder disease and no gallstones. Her current troponins are mildly elevated and she has hyperglycemia Past Medical History Past Medical History Hypertension, diabetes mellitus, coronary artery disease Past Surgical History Past Surgical History CABG Family History: Diabetes mellitus G8 MOTHER FH: cancer G8 SISTER FHx: heart disease G8 FATHER Allergies: Coded Allergies: Penicillins (Verified Allergy, Unknown, 10/15/23) Home Meds Reported Medications Aspirin (Aspirin Low Dose) 81 Mg Tab, 1 TAB PO DAILY 10/15/23 Naproxen (NAPROSYN TABLET) 500 Mg Tb, 1 TAB PO BID 10/15/23 Furosemide (Furosemide) 40 Mg Tab, 1 TAB PO DAILY 10/15/23 Nebivolol HCl (Nebivolol Hydrochloride) 5 Mg Tab, 1 TAB PO DAILY 10/15/23 Dicyclomine Hcl (Dicyclomine Hcl) 20 Mg Tab, TAB PO 10/15/23 Atorvastatin Calcium (ATORVASTATIN CALCIUM) 40 Mg Tab, 1 TAB PO DAILY 10/15/23 Metoclopramide Hcl (Metoclopramide Hcl) 5 Mg Tab, 1 TAB PO QID 10/15/23 Gabapentin (Gabapentin) 300 Mg Cap, 1 CAP PO TID 10/15/23 Pantoprazole Sodium Sesquihydr (Pantoprazole Sodium) 40 Mg Tab, 1 TAB PO BID 10/15/23 Dicyclomine Hcl (BENTYL CAPSULE) 10 Mg Cp, 1 CAP PO Q6HPRN PRN 10/15/23 Fluticasone Furoate-Vilanterol (Breo Ellipta 200-25 Mcg/INH) 1 Inh Inh, 1 PUFF INH DAILY 10/15/23 Lisinopril & Hydrochlorothiazi (Lisinopril/Hydrochlorothi) 1 Tab Tab, 1 TAB PO DAILY 10/15/23 Sucralfate (Sucralfate) 1 Gm Tab, 1 TAB PO BID 10/15/23 Linaclotide Base (LINZESS) 290 Mcg Cap, 1 CAP PO DAILY 10/15/23 Ranolazine (Ranolazine ER) 500 Mg Tab, 1 TAB PO BID 10/15/23 Current Medications Current Medications Medications (Trade) Dose Ordered Sig/Merly Route PRN Reason Start Time Stop Time Status Last Admin Aspirin 162 mg DAILY PO 06/01/24 10:00 06/01/24 07:57 DC Atorvastatin Calcium (Lipitor) 40 mg HS PO 06/01/24 22:00 Furosemide (Lasix Tablet) 40 mg DAILY PO 06/01/24 10:00 Ranolazine (Ranexa ER) 500 mg BID PO 06/01/24 10:00 Lisinopril (Zestril Tablet) 10 mg DAILY PO 06/01/24 10:00 Temazepam (Restoril) 15 mg QHSP PRN PO FOR INSOMNIA 05/31/24 22:45 Ondansetron HCl (Zofran) 4 mg Q4HP PRN IV NAUSEA / VOMITING 05/31/24 22:45 06/01/24 05:08 Enoxaparin Sodium (Lovenox) 40 mg DAILY SC 06/01/24 10:00 Nitroglycerin (Ntrostat Sublingual) 0.4 mg Q5MINP PRN SL FOR CHEST PAIN 05/31/24 22:45 Morphine Sulfate 2 mg Q30M PRN IV FOR CHEST PAIN 05/31/24 22:45 Hydralazine HCl (Apresoline Injection) 10 mg Q6HP PRN IV SBP>150 06/01/24 04:15 06/01/24 04:13 Acetaminophen/ Hydrocodone Bitart ([place] 5/325MG Tab) 1 tab Q6HPRN PRN PO SEVERE PAIN (7-10 PAIN SCALE) 06/01/24 04:15 06/01/24 04:17 Aspirin 81 mg DAILY PO 06/01/24 08:00 Hold 06/01/24 08:36 Pantoprazole Sodium (Protonix Tablet) 40 mg DAILY@0600 PO 06/02/24 06:00 Sucralfate (Carafate Susp) 1 gm QID@0600,1130,1700,2200 PO 06/01/24 11:30 UNV Vital Signs Vital Signs Date Time Temp Pulse Resp B/P (MAP) Pulse Ox O2 Delivery O2 Flow Rate FiO2 06/01/24 09:40 92 17 95 Room Air* 0 21 06/01/24 09:01 140/58 (85) 05/31/24 20:37 98.5 98.5 Physical Exam Gen: 68-year-old female no distress. Skin: Warm, dry, normal color and texture, no rash. HEENT: Normocephalic atraumatic, mucous membranes moist and pink. Neck: Cervical and supraclavicular nodes normal without enlargement, trachea is midline, thyroid gland is normal without masses. Pulmonary: Clear to auscultation and percussion bilaterally. Cardiac: Regular rate and rhythm. No murmur Abdomen: Soft, nontender, nondistended, bowel sounds present all 4 quadrants, no guarding, no rigidity, no organomegaly. Extremities: No cyanosis, clubbing, no edema Neuro: Cranial nerves II through XII grossly intact, normal affect and speech, no focal motor deficits. Labs/Diagnostic Data Labs Test 06/01/24 05:10 05/31/24 23:13 05/31/24 16:04 05/31/24 15:10 Range/Units Sodium Level 137 136-145 mmol/L Potassium Level 4.0 3.5-5.1 mmol/L Chloride Level 101 98-107 mmol/L Carbon Dioxide Level 25 20-31 mmol/L Anion Gap 11 5-15 Blood Urea Nitrogen 14 9-23 mg/dL Creatinine 0.74 0.550-1.02 mg/dL Glomerular Filtration Rate Calc 87 >90 mL/min BUN/Creatinine Ratio 18.9 10.0-20.0 Serum Glucose 326 H 74-106 mg/dL Calcium Level 10.2 8.7-10.4 mg/dL POC Glucose 214 H 70-106 mg/dl White Blood Count 7.6 4.4-10.8 10^3/uL Red Blood Count 4.16 4.0-5.20 10^6/uL Hemoglobin 12.1 L 12.2-16.2 g/dL Hematocrit 37.5 36.0-46.0 % Mean Corpuscular Volume 90.0 80.0-100.0 fL Mean Corpuscular Hemoglobin 29.2 28.0-32.0 pg Mean Corpuscular Hemoglobin Concent 32.4 32.0-36.0 g/dL Red Cell Distribution Width 13.7 11.8-14.3 % Platelet Count 276 140-450 10^3/uL Mean Platelet Volume 9.2 6.9-10.8 fL Neutrophils (%) (Auto) 76.5 37.0-80.0 % Lymphocytes (%) (Auto) 14.0 10.0-50.0 % Monocytes (%) (Auto) 7.6 0.0-12.0 % Eosinophils (%) (Auto) 1.5 0.0-7.0 % Basophils (%) (Auto) 0.4 0.0-2.0 % Neutrophils # (Auto) 5.8 1.6-8.6 10 ^3/uL Lymphocytes # (Auto) 1.1 0.4-5.4 10 ^3/uL Monocytes # (Auto) 0.6 0-1.3 10 ^3/uL Eosinophils # (Auto) 0.1 0-0.8 10 ^3/uL Basophils # (Auto) 0 0-0.2 10 ^3/uL Nucleated Red Blood Cells 0.1 % Total Bilirubin 0.4 0.2-1.0 mg/dL Aspartate Amino Transferase (AST) 37 13-40 U/L Alanine Aminotransferase (ALT) 57 H 7-40 U/L Alkaline Phosphatase 185 H 46-116 U/L Total Protein 6.5 5.7-8.2 g/dL Albumin 4.1 3.2-4.8 g/dL Urine Color Light-yellow Yellow Urine Clarity Clear Clear Urine pH 7.0 5.0-9.0 Urine Specific [place] 1.012 1.001-1.035 Urine Protein Negative Negative Urine Ketones Negative Negative Urine Blood Negative Negative /uL Urine Nitrite Negative Negative Urine Bilirubin Negative Negative Urine Urobilinogen Normal Negative mg/dL Urine Leukocyte Esterase Negative Negative /uL Urine RBC <1 0 - 4 /hpf Urine WBC 1 0 - 5 /hpf Urine Squamous Epithelial Cells Few <5 /hpf Urine Bacteria None seen None Seen /hpf Urine Glucose 3+ H Normal mg/dL Problems(with codes): (1) GERD (gastroesophageal reflux disease) (2) ACS (acute coronary syndrome) (3) Elevated troponin Plan/Recommendation Plan Protonix 40 mg p.o. twice a day Carafate 1 g p.o. [address] scan abdomen pelvis with oral contrast only Try to get report of recent endoscopy from [facility] Romero Patient needs cardiac stabilization for suspected NSTEMI Patient undergoing EKG echocardiogram evaluation Once cleared by Cardiology I will consider possible repeat endoscopy Clear liquid diet I will follow up patient with you Once again thank you for allowing me to participate in the care of this patient Plan discussed with: Patient STANTON ROSALES MD Jun 01, 2024 10:02
[2024-06-01] MEDS: LISINOPRIL 5 MG TAB PO SCH (10:14)
[2024-06-01] MEDS: FUROSEMIDE 40 MG TAB PO SCH (10:14)
[2024-06-01] MEDS: RANOLAZINE ER 500 MG TAB PO SCH (10:14)
[2024-06-01] MEDS: ENOXAPARIN SOD 40 MG/0.4 ML SYRINGE SC SCH (10:15)
[2024-06-01] MEDS: GASTROGRAFIN 30 ML SOL ONE (10:16)
[2024-06-01] MEDS: SUCRALFATE 1 GM/10 ML ORAL SUSP PO SCH (11:43)
--- NOTE | 2024-06-01 12:02 | DVH ---
CT ABDOMEN AND PELVIS WITHOUT CONTRAST CLINICAL HISTORY: atypical chest pain and abdominal pain TECHNIQUE: Multiple contiguous axial images of the abdomen and pelvis without intravenous and with or al contrast. The images were reformatted degenerate coronal and sagittal reconstructions. All CT scans at this medical facility are performed using dose modulation techniques as appropriate t o a performed exam including the following:Automated exposure control was utilized; adjustment of the MA and/or KV according to patient size; and use of iterative reconstruction technique. Radiation Dose Information: CT Dose: CTDI volume is 13.14 mGy. Dose-length product is 600.91 mGy*cm Comparison: None FINDINGS: Evaluation of the abdomen and pelvis is limited without intravenous contrast. The liver, gallbladder, pancreas, kidneys, adrenal glands, and spleen appear within normal limits. There is no gross evidence of abdominal lymphadenopathy. There is no free fluid or free air. There is a small hiatal hernia. Oral contrast is seen in the stomach and small bowel loops. The smal l and large bowel loops demonstrate normal caliber. There are multiple diverticula in the sigmoid co alvarado without evidence of acute diverticulitis. The abdominal aorta and IVC appear within normal limits. The bladder appears unremarkable for the degree of distention. Uterus is surgically absent.. There i s no gross evidence of a pelvic mass. There is no free fluid collection. Lung bases are clear. There is no acute osseous abnormality. IMPRESSION: 1. There is no acute process in the abdomen and pelvis. 2. Small hiatal hernia. 3. Sigmoid diverticulosis without evidence of acute diverticulitis. HS:Y
[2024-06-01] MEDS ORDERED: DEXTROSE (50%) 50ML SYRG IV PRN (12:30)
[2024-06-01] MEDS: INSULIN LANTUS (GLARGINE) 1 /0.01ml (100units/ml) SC ONE (12:41)
[2024-06-01 14:47] VITALS: BP 134/55; PULSE 77; RESP 16; TEMP 97.9; O2SAT 93
[2024-06-01 14:49] VITALS: BP 134/55; PULSE 77; RESP 16; TEMP 97.9; O2SAT 94
[2024-06-01] MEDS ORDERED: SEMA4INJ SC (16:50)
[2024-06-01] MEDS ORDERED: INSLISPI SC (16:50)
[2024-06-01] MEDS ORDERED: INSLANTI SC (16:50)
[2024-06-01] MEDS ORDERED: CETI-120 PO (16:52)
[2024-06-01] MEDS ORDERED: InsuLIN REG 1unit/0.01ml Soln (100units/ml) SC SCH (17:00)
--- NOTE | 2024-06-01 17:19 | DVHINCON2 ---
Date Seen: Jun 01, 2024 Referring Physician MD Elpidio Reason for Consultation cardiac risk stratification History of Present Illness This is a 68-year-old female patient who presents to emergency room with chief complaint of nausea and vomiting x3 months. She also mentions acid reflux and chest pain. She reports that the chest pain began after the epigastric pain. She describes it as a burning sensation, provoked after eating, midsternal and radiates to her throat The patient reports she was recently discharged last Wednesday from a hospital in [place] for similar complaints. She reports at that time she had an endoscopy done but is unsure what the results were. Cardiology is now being consulted for cardiac risk stratification for pending EGD. Initial twelve lead electrocardiogram reveals normal sinus rhythm without any significant ST segment changes (baseline wander in lead V4/V5). Initial troponin level of 112ng/L with down trend thereafter. Patient is a very poor historian. Significant past medical history includes severe coronary artery disease status post quadruple vessel CABG in 2019 (on ASA/Brilinta), hypertension, hyperlipidemia, type 2 diabetes mellitus, peripheral neuropathy, asthma, hard of hearing, and morbid obesity. The patient reports that she sees a hardboard press operator in the outpatient setting, but does not remember his name. Past Medical History Past medical history reviewed. No other significant than mentioned above. Past Surgical History Quadruple vessel CABG in 2019 Family History: Cardiovascular disease G8 FATHER, Diabetes mellitus G8 MOTHER, FH: cancer G8 SISTER FHx: heart disease G8 FATHER, Family History Family history reviewed. Social History Denies the use of tobacco, alcohol or illicit drugs. Allergies: Coded Allergies: Penicillins (Verified Allergy, Unknown, 10/15/23) Home Meds Reported Medications Cetirizine HCl (Cetirizine Hydrochloride) 10 Mg Tab, 10 MG PO DAILYPRN, TAB 06/01/24 Semaglutide (Ozempic) 4 Mg/3 Ml Inj, SC 06/01/24 Insulin Lispro (Human) (Humalog) 100 Unit/Ml Inj, SC 06/01/24 Insulin Glargine (Lantus) 100 Unit/Ml Inj, SC 06/01/24 Aspirin (Aspirin Low Dose) 81 Mg Tab, 1 TAB PO DAILY 10/15/23 Naproxen (NAPROSYN TABLET) 500 Mg Tb, 1 TAB PO BID 10/15/23 Furosemide (Furosemide) 40 Mg Tab, 1 TAB PO DAILY 10/15/23 Nebivolol HCl (Nebivolol Hydrochloride) 5 Mg Tab, 1 TAB PO DAILY 10/15/23 Dicyclomine Hcl (Dicyclomine Hcl) 20 Mg Tab, TAB PO 10/15/23 Atorvastatin Calcium (ATORVASTATIN CALCIUM) 40 Mg Tab, 1 TAB PO DAILY 10/15/23 Metoclopramide Hcl (Metoclopramide Hcl) 5 Mg Tab, 1 TAB PO QID 10/15/23 Gabapentin (Gabapentin) 300 Mg Cap, 1 CAP PO TID 10/15/23 Pantoprazole Sodium Sesquihydr (Pantoprazole Sodium) 40 Mg Tab, 1 TAB PO BID 10/15/23 Dicyclomine Hcl (BENTYL CAPSULE) 10 Mg Cp, 1 CAP PO Q6HPRN PRN 10/15/23 Fluticasone Furoate-Vilanterol (Breo Ellipta 200-25 Mcg/INH) 1 Inh Inh, 1 PUFF INH DAILY 10/15/23 Lisinopril & Hydrochlorothiazi (Lisinopril/Hydrochlorothi) 1 Tab Tab, 1 TAB PO DAILY 10/15/23 Sucralfate (Sucralfate) 1 Gm Tab, 1 TAB PO BID 10/15/23 Linaclotide Base (LINZESS) 290 Mcg Cap, 1 CAP PO DAILY 10/15/23 Ranolazine (Ranolazine ER) 500 Mg Tab, 1 TAB PO BID 10/15/23 Home Meds Home medications reviewed. Current Medications Current Medications Medications (Trade) Dose Ordered Sig/Merly Route PRN Reason Start Time Stop Time Status Last Admin Aspirin 162 mg DAILY PO 06/01/24 10:00 06/01/24 07:57 DC Atorvastatin Calcium (Lipitor) 40 mg HS PO 06/01/24 22:00 Furosemide (Lasix Tablet) 40 mg DAILY PO 06/01/24 10:00 06/01/24 10:14 Ranolazine (Ranexa ER) 500 mg BID PO 06/01/24 10:00 06/01/24 10:14 Lisinopril (Zestril Tablet) 10 mg DAILY PO 06/01/24 10:00 06/01/24 10:14 Temazepam (Restoril) 15 mg QHSP PRN PO FOR INSOMNIA 05/31/24 22:45 Ondansetron HCl (Zofran) 4 mg Q4HP PRN IV NAUSEA / VOMITING 05/31/24 22:45 06/01/24 05:08 Enoxaparin Sodium (Lovenox) 40 mg DAILY SC 06/01/24 10:00 06/01/24 10:15 Nitroglycerin (Ntrostat Sublingual) 0.4 mg Q5MINP PRN SL FOR CHEST PAIN 05/31/24 22:45 Morphine Sulfate 2 mg Q30M PRN IV FOR CHEST PAIN 05/31/24 22:45 Hydralazine HCl (Apresoline Injection) 10 mg Q6HP PRN IV SBP>150 06/01/24 04:15 06/01/24 04:13 Acetaminophen/ Hydrocodone Bitart ([place] 5/325MG Tab) 1 tab Q6HPRN PRN PO SEVERE PAIN (7-10 PAIN SCALE) 06/01/24 04:15 06/01/24 04:17 Aspirin 81 mg DAILY PO 06/01/24 08:00 Hold 06/01/24 08:36 Pantoprazole Sodium (Protonix Tablet) 40 mg DAILY@0600 PO 06/02/24 06:00 06/01/24 12:32 DC Sucralfate (Carafate Susp) 1 gm QID@0600,1130,1700,2200 PO 06/01/24 11:30 06/01/24 11:43 Insulin Human Regular (InsuLIN R) 5 units AC MT 06/01/24 17:00 Hold Diagnostic Test (Pha) (Accu-Chek Comfort Curve T) 1 strip ACHS 06/01/24 17:00 Insulin Human Regular (InsuLIN R) ACHS MT 06/01/24 17:00 Dextrose 50 ml UD PRN IV Blood Sugar LESS THAN 60 06/01/24 12:30 Pantoprazole Sodium (Protonix Tablet) 40 mg BID PO 06/01/24 22:00 Review of Systems Constitutional: No symptom reported Ears, Nose, & Throat: No symptom reported Eyes: No symptom reported Neurological: No symptoms reported Pulmonary/Respiratory: No symptoms reported Cardiovascular: No symptom reported Gastrointestinal: Epigastric pain Genitourinary: No symptom reported Musculoskeletal: No symptom reported Skin: No symptom reported Psychiatric: No symptom reported Endocrine: No symptom reported Hematologic/Lymphatic: No symptom reported Vital Signs Vital Signs Date Time Temp Pulse Resp B/P (MAP) Pulse Ox O2 Delivery O2 Flow Rate FiO2 06/01/24 14:49 97.9 77 16 134/55 (81) 94 97.9 06/01/24 09:40 Room Air* 0 21 Physical Exam General Appearance: Cooperative. Morbidly obese Pulmonary/Respiratory: Clear, bilateral breaths sounds. Cardiovascular/Chest: Regular rate and rhythm. Peripheral Pulses: 2+ Radial (R). 2+ Radial (L). 2+ Pedal (R). 2+ Pedal (L) Abdominal Exam: Normal bowel sounds. Ankle Exam: Negative ankle edema Lower extremities: Negative lower extremity edema Neuro/Mental Status: A/OX4, coherent. Thoughts/Psych: Normal thought pattern. Appropriate mood and affect. Good judgment and insight. Appearance: No acute distress. Skin Exam: Normal inspection. Normal color. Warm and dry. Labs/Diagnostic Data Labs Test 06/01/24 12:41 06/01/24 05:10 05/31/24 16:04 05/31/24 15:10 Range/Units POC Glucose 404 *H 70-106 mg/dl Sodium Level 137 136-145 mmol/L Potassium Level 4.0 3.5-5.1 mmol/L Chloride Level 101 98-107 mmol/L Carbon Dioxide Level 25 20-31 mmol/L Anion Gap 11 5-15 Blood Urea Nitrogen 14 9-23 mg/dL Creatinine 0.74 0.550-1.02 mg/dL Glomerular Filtration Rate Calc 87 >90 mL/min BUN/Creatinine Ratio 18.9 10.0-20.0 Serum Glucose 326 H 74-106 mg/dL Calcium Level 10.2 8.7-10.4 mg/dL Troponin I High Sensitivity 82 *H </=34 ng/L White Blood Count 7.6 4.4-10.8 10^3/uL Red Blood Count 4.16 4.0-5.20 10^6/uL Hemoglobin 12.1 L 12.2-16.2 g/dL Hematocrit 37.5 36.0-46.0 % Mean Corpuscular Volume 90.0 80.0-100.0 fL Mean Corpuscular Hemoglobin 29.2 28.0-32.0 pg Mean Corpuscular Hemoglobin Concent 32.4 32.0-36.0 g/dL Red Cell Distribution Width 13.7 11.8-14.3 % Platelet Count 276 140-450 10^3/uL Mean Platelet Volume 9.2 6.9-10.8 fL Neutrophils (%) (Auto) 76.5 37.0-80.0 % Lymphocytes (%) (Auto) 14.0 10.0-50.0 % Monocytes (%) (Auto) 7.6 0.0-12.0 % Eosinophils (%) (Auto) 1.5 0.0-7.0 % Basophils (%) (Auto) 0.4 0.0-2.0 % Neutrophils # (Auto) 5.8 1.6-8.6 10 ^3/uL Lymphocytes # (Auto) 1.1 0.4-5.4 10 ^3/uL Monocytes # (Auto) 0.6 0-1.3 10 ^3/uL Eosinophils # (Auto) 0.1 0-0.8 10 ^3/uL Basophils # (Auto) 0 0-0.2 10 ^3/uL Nucleated Red Blood Cells 0.1 % Total Bilirubin 0.4 0.2-1.0 mg/dL Aspartate Amino Transferase (AST) 37 13-40 U/L Alanine Aminotransferase (ALT) 57 H 7-40 U/L Alkaline Phosphatase 185 H 46-116 U/L Total Protein 6.5 5.7-8.2 g/dL Albumin 4.1 3.2-4.8 g/dL Urine Color Light-yellow Yellow Urine Clarity Clear Clear Urine pH 7.0 5.0-9.0 Urine Specific [place] 1.012 1.001-1.035 Urine Protein Negative Negative Urine Ketones Negative Negative Urine Blood Negative Negative /uL Urine Nitrite Negative Negative Urine Bilirubin Negative Negative Urine Urobilinogen Normal Negative mg/dL Urine Leukocyte Esterase Negative Negative /uL Urine RBC <1 0 - 4 /hpf Urine WBC 1 0 - 5 /hpf Urine Squamous Epithelial Cells Few <5 /hpf Urine Bacteria None seen None Seen /hpf Urine Glucose 3+ H Normal mg/dL Assessment Preprocedural cardiovascular examination Coronary artery disease status post quadruple vessel CABG (on ASA and Brilinta) NSTEMI type 2 secondary to hypertensive urgency Hyperlipidemia Type 2 diabetes mellitus Asthma Morbid obesity Plan/Recommendation (Dr. Pollack): Transthoracic echocardiogram reveals EF 55%, RVSP 35mmHg. Revised cardiac risk index (Hi criteria): 2 points (10.1% risk of major cardiac event ). Chest x-ray reveals no evidence of acute cardiopulmonary disease. The patient has an underlying history of coronary artery disease. Per patient, prior to admission, she has a good functional capacity. Per Cardiology standpoint, the patient is at a high risk for moderate risk surgery. There is no additional cardiac workup indicated prior to surgery. Thank you for allowing us to care for this patient. Please call with any questions or concerns. Critical care time spent: 40 minutes This medical document was created using an electronic medical record system with voice recognition software and computerized dictation system. Although this d ocument has been carefully reviewed, there might still be some phonetic and typographical errors. Occasional wrong-word or ``sound-alike substitutions may have occurred due to the inherent limitations of voice recognition software. These areas are purely typographical due to imperfections of the software programs and do not reflect any compromise in the patient's medical care. Please read the chart carefully and recognize, using context, where these substitutions have occurred. Plan discussed with: Patient Date of Service: Jun 01, 2024 Billing Provider: PETE POLLACK MD Cardiology Common Codes: 28101-CVZDVER INP/OBS CARE (High) Cardiology Consultation Codes: 85909-[id number] CONSULT <45MIN KING STANLEY Jun 01, 2024 17:19
[2024-06-01] MEDS: ACCU-CHEK COMFORT CURVE STRIP VI SCH (17:55)
[2024-06-01] MEDS: InsuLIN REG 1unit/0.01ml Soln (100units/ml) SC SCH (17:59)
[2024-06-01] MEDS: ASPirin 81 mg TAB PO ONE (19:15)
[2024-06-01] MEDS: ATORVASTATIN 20 MG TAB PO SCH (20:59)
[2024-06-01 21:00] VITALS: BP 110/35; PULSE 71; RESP 18; TEMP 98.3; O2SAT 91
[2024-06-01] MEDS: PANTOPRAZOLE 40 MG TAB PO SCH (21:00)
[2024-06-02] VITALS (7 sets, daily range): BP systolic 110–149; BP diastolic 37–58; PULSE 68–75; RESP 17–20; TEMP 97.5–98.5; O2SAT 91–96
[2024-06-02] MEDS ORDERED: PANTOPRAZOLE 40 MG TAB PO SCH (06:00)
[2024-06-02 06:06] LABS: Anion Gap 5 (5-15); Carbon Dioxide 30 mmol/L (20-31); Chloride 106 mmol/L (98-107); Potassium 3.7 mmol/L (3.5-5.1); Sodium 141 mmol/L (136-145)
[2024-06-02 06:07] LABS: Calcium 9.9 mg/dL (8.7-10.4)
[2024-06-02 06:12] LABS: BUN/Creatinine Ratio 20.5 (10.0-20.0); Blood Urea Nitrogen 16 mg/dL (9-23); Glucose 99 mg/dL (74-106); Magnesium 2.1 mg/dL (1.6-2.6)
[2024-06-02 06:23] LABS: Basophils # (auto) 0 10 ^3/uL (0-0.2); Basophils % (auto) 0.6 % (0.0-2.0); Eosinophils # (auto) 0.2 10 ^3/uL (0-0.8); Eosinophils % (auto) 3.8 % (0.0-7.0); Hematocrit 38.9 % (36.0-46.0); Hemoglobin 12.4 g/dL (12.2-16.2); Lymphocytes # (auto) 1.7 10 ^3/uL (0.4-5.4); Lymphocytes % (auto) 31.8 % (10.0-50.0); Mean Corpuscular Hemoglobin 29.3 pg (28.0-32.0); Mean Corpuscular Volume 91.5 fL (80.0-100.0); Monocytes # (auto) 0.5 10 ^3/uL (0-1.3); Monocytes % (auto) 9.2 % (0.0-12.0); Neutrophils # (auto) 2.9 10 ^3/uL (1.6-8.6); Neutrophils % (auto) 54.6 % (37.0-80.0); Nucleated Red Blood Cells % 0.1 %; Platelet Count (auto) 292 10^3/uL (140-450); Red Blood Cells 4.25 10^6/uL (4.0-5.20); Red Cell Distribution Width 13.7 % (11.8-14.3); White Blood Cell 5.4 10^3/uL (4.4-10.8)
[2024-06-02] MEDS: INSULIN LANTUS (GLARGINE) 1 /0.01ml (100units/ml) SC SCH (10:00)
--- NOTE | 2024-06-02 10:19 | DVHSR ---
APPROVED REPORT EXAM: Two-dimensional and M-mode echocardiogram with Doppler and color Doppler. Blood Pressure: 134/55 mmHg INDICATION Pre-Op Surgery/Intervention CABG: RISK FACTORS Height: 5', Weight: 166 DIMENSIONS LVDd3.9 (3.8-5.7cm)LA (2D)3.1 (1.9-4.0cm)Aortic Root2.7 (2.0-3.7cm) LVDs2.3 (2.5-4.0cm)LA (MM) (1.9-4.0cm)Aortic Cusp Exc1.6 (1.5-2.0cm) EF (%) 70.0 (55-70%)Rt. Atrium4.0 (1.9-4.0cm)Asc. Aorta cm IVSd1.0 (0.7-1.1cm)RV (D) (1.8-2.4cm) PWd1.1 (0.7-1.1cm) Mitral Valve MitralMitral Stenosis E wave1.00m/sMV Mean GR.mmHg A wave1.10m/sMV Peak GR.mmHg E/A ratio0.92D MVAcm2 Aortic Valve Aortic ValveAortic Stenosis V11.10m/Dayron Mean GR.5mmHg V21.50m/Dayron Peak GR.10mmHg LVOT Diameter2.0 (1.8-2.4cm)Doppler AVA2.30cm2 Pulmonic Valve V20.70m/s Tricuspid Valve TR Velocity2.70m/s [id number] Conclusion Normal left ventricular size and dimension. Normal left ventricular systolic function estimated ejec tion fraction 55%. There is a grade 1 diastolic dysfunction. Normal left ventricular size and dimension. Normal left ventricular systolic function. Slightly inc reased right ventricular systolic [id number] mm of mercury Normal biatrial size and dimension. Normal aortic valve structure and function. Normal mitral valve structure and function. Normal tricuspid valve structure and function. The pulmonary valve is grossly normal. No pericardial effusion.
--- NOTE | 2024-06-02 12:43 | DVHPNRES ---
Progress Note Date Seen: Jun 02, 2024 Resident Creating Document: [facility] RESIDENT Medical Necessity Reason Pt with a Central, PICC or Fol: No Subjective Review of Systems 68-year-old female with past medical history of Hypertension, diabetes mellitus, coronary artery disease status post CABG presented with chief complaint of dysphagia intractable nausea and vomiting and unable to tolerate any food for last seven days. Patient mentioned that he had recent endoscopy done, does not remember the results. Patient also had associated low grade chest pain, that she describes a pressure-like but mentioned this was different quality of pain compared to when she had CABG. She also mentioned associated epigastric pain, and regurgitation, she is currently complaining of something stuck in the food pipe but mentions she has not eaten recently. Patient also mentioned black- colored stools on and off for few months. Patient seen and examined at bedside. Patient is mentioning improvement in her symptoms. Patient is kept NPO by the GI. pt is planned for EGD today ROS Constitutional: No: Fever, Chills, Sweats, Weakness, Malaise, Other Eyes: No: Pain, Vision change, Conjunctivae inflammation, Eyelid inflammation, Other, Redness ENT: No: Ear pain, Ear discharge, Nose pain, Nose discharge, Nose congestion, Mouth pain, Mouth swelling, Throat pain, Throat swelling, Other Respiratory: No: Cough, Dry, Shortness of breath, SOB with excertion, Wheezing, Hemoptysis, Pleuritic Pain, Sputum, Wheezing, Other Cardiovascular: Mild chest pain No: Chest Pain, Palpitations, Orthopnea, Paroxysmal Noc. Dyspnea, Edema, Lt Headedness, Other Gastrointestinal: Nausea, vomiting, acid reflux, heartburn, regurgitation of food, dysphagia, no melena, no hematemesis Musculoskeletal: No: other, neck pain, shoulder pain, arm pain, back pain, hand pain, leg pain, foot pain Neurological:; No: Weakness, Numbness, Incoordination, Change in speech, Confusion, Seizures Objective vital signs Vital Sign Date Time Temp Pulse Resp B/P (MAP) Pulse Ox O2 Delivery O2 Flow Rate FiO2 06/02/24 10:14 133/48 06/02/24 09:00 97.8 69 20 92 97.8 06/02/24 08:00 Room Air* 0 21 Total Intake and Output 06/01/24 06/01/24 06/02/24 15:00 23:00 07:00 Intake Total 0 ml 700 ml Balance 0 ml 700 ml medications Current Medications Medications Dose Ordered Sig/Merly Route Start Time Stop Time Status Last Admin Dose Admin Atorvastatin Calcium 40 mg HS PO 06/01/24 22:00 06/01/24 20:59 40 MG Furosemide 40 mg DAILY PO 06/01/24 10:00 06/02/24 10:14 40 MG Ranolazine 500 mg BID PO 06/01/24 10:00 06/02/24 10:13 500 MG Lisinopril 10 mg DAILY PO 06/01/24 10:00 06/02/24 10:13 10 MG Ondansetron HCl 4 mg Q4HP PRN IV 05/31/24 22:45 06/01/24 05:08 4 MG Hydralazine HCl 10 mg Q6HP PRN IV 06/01/24 04:15 06/01/24 04:13 10 MG Aspirin 81 mg DAILY PO 06/01/24 08:00 Hold 06/01/24 08:36 81 MG Sucralfate 1 gm QID@0600,1130,1700,2200 PO 06/01/24 11:30 06/02/24 06:03 1 GM Insulin Human Regular 5 units AC DC 06/01/24 17:00 Hold Diagnostic Test (Pha) 1 strip ACHS 06/01/24 17:00 06/02/24 11:57 1 STRIP Insulin Human Regular ACHS DC 06/01/24 17:00 06/01/24 20:43 10 UNITS Dextrose 50 ml UD PRN IV 06/01/24 12:30 Pantoprazole Sodium 40 mg BID PO 06/01/24 22:00 06/02/24 10:11 40 MG Insulin Glargine 15 units DAILY@1000 DC 06/02/24 10:00 Examination Examination General Appearance: Alert, Oriented X3, Cooperative, No acute distress HEENT: EOMI Respiratory: Clear to auscultation, Normal air movement Cardiovascular: Regular rate, Normal S1, Normal S2 Abdominal: Mild epigastric tenderness Extremities: No cyanosis, No edema, Normal pulses, No tenderness/swelling Skin: No rashes, No breakdown Neuro: Normal speech and tone laboratory and microbiology Laboratory Tests 06/02/24 05:26 Test 06/02/24 05:26 Range/Units Serum Glucose 99 74-106 mg/dL Labs and/or images reviewed: Labs reviewed by me, Image(s) reviewed by me Problem List/Assessment/Plan Problem List/Assessment/Plan Assessment/plan #Dysphagia -Protonix p.o. b.i.d. Carafate 1 g q.i.d. -gi consulted, we will consider endoscopy once Cardiology clears -CT abd/pelvis without contrast revealed 1. There is no acute process in the abdomen and pelvis. 2. Small hiatal hernia. 3. Sigmoid diverticulosis without evidence of acute diverticulitis. pt planned for EGD today #GI bleed, likely upper GI bleed considering Melena -IV Protonix -avoid NSAIDs -monitor CBC --CT abd/pelvis without contrast revealed 1. There is no acute process in the abdomen and pelvis. 2. Small hiatal hernia. 3. Sigmoid diverticulosis without evidence of acute diverticulitis. pt planned for EGD today # diverticulosis without diverticulitis -monitor #GERD -Protonix 40mg bid oral -gi consulted pt planned for EGD today #chest pain, likely GI cause -ekg unremarkable -trops -CXR -protonix 40 mg b.i.d. #CAD, history of CABG -hold aspirin considering GI bleed -continue statins, ranolazine -cardiology on board for Cardiology clearance for EGD # hypertensive urgency -IV hydralazine q.6 p.r.n. -continue home medication #Elevated trops likely NSTEMI -likely due to hypertensive urgency #?HFpEF likely ischemic -continue home meds -repeat Echo #history of valve repair -monitor #DM2 -sliding scale insulin, insulin long-acting plus pre meal, covering basal bolus #Morbid obesity -Counseling for cessation #bilateral carotid artery stenosis -asymptomatic DVT prophylaxis on hold considering possible upper GI bleed Code status discussed with the patient for >21min: FULL CODE pt planned for EGD today Discharge planning within 24-48 hours Case discussion with Dr. Milan Plan discussed with: Patient, Other My Orders My Orders Orders - [facility] SABILLON Procedure Category Date Status Time Transfer Orders XFER 06/01/24 Transmitted 12:37 Mrsa Screen CASIE 06/01/24 In Process 16:26 Obtain Mr From Other ORDERS 06/01/24 Transmitted Facility [id number] Insulin Lantus PHA 06/02/24 In Process (Glargine) (Lantus) 10:00 Date of Service: Jun 02, 2024 Billing Provider: JAYLIN MILAN MD Common Visit Codes: [id number] INP/OBS CARE(HIGH) [facility] RESIDENT Jun 02, 2024 12:43 JAYLIN MILAN MD Jun 03, 2024 17:38
[2024-06-02] MEDS ORDERED: fentaNYL CITRATE 100 MCG/2 ML VL ONE (14:58)
[2024-06-02] MEDS ORDERED: GLYCOPYRROLATE 0.2 MG/ML 1ML VIAL ONE (14:59)
[2024-06-02] MEDS ORDERED: ONDANSETRON HCL 4 MG/2 ML VIAL ONE (14:59)
[2024-06-02] MEDS ORDERED: PROPOFOL 10 MG/ML 20 ML IV ONE (14:59)
[2024-06-02] MEDS ORDERED: MIDAZOLAM HCL 2MG/2ML 2ml VIAL (1mg/ml) ONE (15:00)
--- NOTE | 2024-06-02 15:21 | DVHOP2 ---
Operative Report DATE OF OPERATION: 06/02/24 PROCEDURE: Upper Endoscopy with biopsy. PREOPERATIVE INDICATION: The patient is a 68 -year-old female undergoing endoscopy for chronic GERD an atypical chest pain and dyspepsia POSTOPERATIVE DIAGNOSES: 1. 2-3 cm sliding-type hiatal hernia with grade A erosive esophagitis at the GE junction 2. Mgnp-en-[id number] gastritis with gastric linear erosions 3. Moderate duodenitis of the duodenal bulb with hyperemia erythema and duodenal erosion PROCEDURE PERFORMED BY: Stanton Cedeño GI NURSE: Duran SCOPE: Olympus videoendoscope. ASA CLASS: 3. PREOPERATIVE MEDICATIONS: Mac sedationDr. Lockett PROCEDURE IN DETAIL: After obtaining an informed consent, the patient was placed on left lateral decubitus position. The patient was then sedated with th e above medications. A bite block was placed between her teeth. The endoscope was then passed through the oropharynx, into the esophagus, and through the stomach and pylorus up to the second and third part of the duodenum. The endoscope was then withdrawn. The 2nd and 3rd part of the duodenum were normal but the duodenal bulb and postbulbar area showed moderate duodenitis with hyperemia erythema superficial erosions The pre-pyloric area antrum and body showed [id number] gastritis with linear gastric erosions and some hyperemia erythema. Gastric biopsies and duodenal biopsies were obtained. On retroflexion the fundus and cardia were normal. The endoscope was then withdrawn into the distal esophagus Patient had a 2-3 cm sliding-type hiatal hernia with grade A erosive esophagitis at junction from which biopsies were obtained The remaining distal and proximal esophagus and oropharynx were unremarkable The patient tolerated the procedure well without difficulty. COMPLICATIONS : None SPECIMENS: Duodenal biopsies Gastric biopsies GE junction biopsies DISPOSITION: Transfer back to the floor Stable PLAN: 1. Await for biopsy result 2. Will place pt on Protonix 40 mg bid 3. Carafate suspension 1 g p.o. 4 times a day 3. Resume soft mechanical diet advance as tolerated 4. Lifestyle and dietary modifications for GERD 5. DC aspirin NSAIDs smoking and alcohol 6. Outpatient follow up with me in 4-6 weeks to review results and discuss further management STANTON CEDEÑO MD Jun 02, 2024 15:21
[2024-06-02] MEDS ORDERED: HYDROmorphone HCL 2 MG/ML VL/or syr IV PRN (15:30)
[2024-06-02] MEDS: ONDANSETRON HCL 4 MG/2 ML VIAL IV ONE (15:30)
[2024-06-02] MEDS: ACCU-CHEK COMFORT CURVE STRIP VI ONE (15:30)
[2024-06-02 18:41] LABS: Basophils # (auto) 0 10 ^3/uL (0-0.2); Basophils % (auto) 0.5 % (0.0-2.0); Eosinophils # (auto) 0.1 10 ^3/uL (0-0.8); Eosinophils % (auto) 1.1 % (0.0-7.0); Hematocrit 36.9 % (36.0-46.0); Hemoglobin 12.5 g/dL (12.2-16.2); Lymphocytes # (auto) 1.7 10 ^3/uL (0.4-5.4); Lymphocytes % (auto) 26.1 % (10.0-50.0); Mean Corpuscular Hemoglobin 30.3 pg (28.0-32.0); Mean Corpuscular Hgb Conc. 33.9 g/dL (32.0-36.0); Mean Corpuscular Volume 89.3 fL (80.0-100.0); Monocytes # (auto) 0.4 10 ^3/uL (0-1.3); Monocytes % (auto) 6.7 % (0.0-12.0); Neutrophils # (auto) 4.2 10 ^3/uL (1.6-8.6); Neutrophils % (auto) 65.6 % (37.0-80.0); Nucleated Red Blood Cells % 0.2 %; Platelet Count (auto) 274 10^3/uL (140-450); Red Blood Cells 4.13 10^6/uL (4.0-5.20); Red Cell Distribution Width 13.3 % (11.8-14.3); White Blood Cell 6.3 10^3/uL (4.4-10.8)
[2024-06-03] VITALS (9 sets, daily range): BP systolic 110–150; BP diastolic 37–70; PULSE 65–84; RESP 16–18; TEMP 36.7; O2SAT 91–99
[2024-06-03] MEDS: ALBUTEROL SULF 2.5 MG/0.5ML(0.5%) NEB SOLN NEB PRN (02:09)
[2024-06-03] MEDS ORDERED: SUCR1SUS26 PO (14:15)
[2024-06-03] MEDS ORDERED: PANT40T PO (14:15)
--- NOTE | 2024-06-03 14:37 | DVHDSRES ---
Discharge Summary Date of Admission Resident Creating Document: [facility]I SABILLON May 31, 2024 at 22:32 Date of Discharge: Jun 03, 2024 Labs/Diagnostic Data: Laboratory Results Test 06/03/24 10:12 06/02/24 18:02 06/02/24 05:26 06/01/24 05:10 POC Glucose 255 mg/dl (70-106) White Blood Count 6.3 10^3/uL (4.4-10.8) Red Blood Count 4.13 10^6/uL (4.0-5.20) Hemoglobin 12.5 g/dL (12.2-16.2) Hematocrit 36.9 % (36.0-46.0) Mean Corpuscular Volume 89.3 fL (80.0-100.0) Mean Corpuscular Hemoglobin 30.3 pg (28.0-32.0) Mean Corpuscular Hemoglobin Concent 33.9 g/dL (32.0-36.0) Red Cell Distribution Width 13.3 % (11.8-14.3) Platelet Count 274 10^3/uL (140-450) Mean Platelet Volume 9.1 fL (6.9-10.8) Neutrophils (%) (Auto) 65.6 % (37.0-80.0) Lymphocytes (%) (Auto) 26.1 % (10.0-50.0) Monocytes (%) (Auto) 6.7 % (0.0-12.0) Eosinophils (%) (Auto) 1.1 % (0.0-7.0) Basophils (%) (Auto) 0.5 % (0.0-2.0) Neutrophils # (Auto) 4.2 10 ^3/uL (1.6-8.6) Lymphocytes # (Auto) 1.7 10 ^3/uL (0.4-5.4) Monocytes # (Auto) 0.4 10 ^3/uL (0-1.3) Eosinophils # (Auto) 0.1 10 ^3/uL (0-0.8) Basophils # (Auto) 0 10 ^3/uL (0-0.2) Nucleated Red Blood Cells 0.2 % Sodium Level 141 mmol/L (136-145) Potassium Level 3.7 mmol/L (3.5-5.1) Chloride Level 106 mmol/L (98-107) Carbon Dioxide Level 30 mmol/L (20-31) Anion Gap 5 (5-15) Blood Urea Nitrogen 16 mg/dL (9-23) Creatinine 0.78 mg/dL (0.550-1.02) Glomerular Filtration Rate Calc 82 mL/min (>90) BUN/Creatinine Ratio 20.5 (10.0-20.0) Serum Glucose 99 mg/dL (74-106) Calcium Level 9.9 mg/dL (8.7-10.4) Magnesium Level 2.1 mg/dL (1.6-2.6) Troponin I High Sensitivity 82 ng/L (</=34) Test 05/31/24 16:04 05/31/24 15:10 Total Bilirubin 0.4 mg/dL (0.2-1.0) Aspartate Amino Transferase (AST) 37 U/L (13-40) Alanine Aminotransferase (ALT) 57 U/L (7-40) Alkaline Phosphatase 185 U/L (46-116) Total Protein 6.5 g/dL (5.7-8.2) Albumin 4.1 g/dL (3.2-4.8) Urine Color Light-yellow (Yellow) Urine Clarity Clear (Clear) Urine pH 7.0 (5.0-9.0) Urine Specific Field[place] 1.012 (1.001-1.035) Urine Protein Negative (Negative) Urine Ketones Negative (Negative) Urine Blood Negative /uL (Negative) Urine Nitrite Negative (Negative) Urine Bilirubin Negative (Negative) Urine Urobilinogen Normal mg/dL (Negative) Urine Leukocyte Esterase Negative /uL (Negative) Urine RBC <1 /hpf (0 - 4) Urine WBC 1 /hpf (0 - 5) Urine Squamous Epithelial Cells Few /hpf (<5) Urine Bacteria None seen /hpf (None Seen) Urine Glucose 3+ mg/dL (Normal) Other Laboratory Tests 06/02/24 18:02 06/02/24 05:26 Brief Hx & Hospital Course: 68-year-old female with past medical history of Hypertension, diabetes mellitus, coronary artery disease status post CABG presented with chief complaint of dysphagia intractable nausea and vomiting and unable to tolerate any food for last seven days. Patient mentioned that he had recent endoscopy done, does not remember the results. Patient also had associated low grade chest pain, that she describes a pressure-like but mentioned this was different quality of pain compared to when she had CABG. She also mentioned associated epigastric pain, and regurgitation, she is currently complaining of something stuck in the food pipe but mentions she has not eaten recently. Patient also mentioned black- colored stools on and off for few months. Patient was started on IV pantoprazole, IV ondansetron. GI was consulted. CT abdomen pelvis revealed There is no acute process in the abdomen and pelvis. Small hiatal hernia. Sigmoid diverticulosis without evidence of acute diverticulitis. Patient underwent EGD which revealed 1. 2-3 cm sliding-type hiatal hernia with grade A erosive esophagitis at the GE junction. Fnsv-ic-wajkrehs gastritis with gastric linear erosions. Moderate duodenitis of the duodenal bulb with hyperemia erythema and duodenal erosion. Patient was started on Carafate 1 g q.i.d. liquids suspension and pantoprazole 40 mg b.i.d. At the time of discharge, patient had stable vitals, no new complaints. Discharge plan discussed with the patient and was advised to follow up with PCP within one week and GI within 2-3 weeks. Patient was prescribed on Carafate 1 g q.i.d. liquids suspension and pantoprazole 40 mg b.i.d. Condition at Discharge: Stable Final Diagnosis/Problems List dypshagia interactable vomitting GI bleed, likely upper GI bleed considering melena 2-3 cm sliding-type hiatal hernia with grade A erosive esophagitis at the GE junction Mmci-pn-wqvpqcwe gastritis with gastric linear erosions Moderate duodenitis of the duodenal bulb with hyperemia erythema and duodenal erosion GERD diverticulosis without diverticulitis chest pain, likely GI cause CAD, history of CABG hypertensive urgency Elevated trops likely NSTEMI type 2 ?HFpEF likely ischemic history of valve repair DM2 bilateral carotid artery stenosis Discharge Disposition: Home Discharge Instruct/Medications Diet: Regular Activity: No Restrictions, As Tolerated Follow Up/Referral: f/u with PCP within 1 week f/u with GI within 2-3 weeks Medications: pantoprazole carafate Discharge Statement: "Patient was advised to return to the ER or call 911 if any headaches, dizziness, shortness of breath, chest pain, abdominal pain, bleeding, fevers, or worsening of medical condition. Patient was counseled about treatment plan, medications, possible side effects, patientverbalized understanding. All questions were answered to the best of my ability. This discharge took greater then 30 minutes in planning, reviewing documentation, counseling the patient, and discussing with other team members." ASSESSMENT ASSESSMENT Assessment duodenitis gastritis sliding type hiatal hernia Date of Service: Jun 03, 2024 Billing Provider: JUNAID AMBROSIO MD Common Visit Codes: 76015-YPD/OBS DISCH DAY >30min [facility] RESIDENT Jun 03, 2024 14:37 JUNAID AMBROSIO MD Jun 03, 2024 21:42
--- NOTE | 2024-06-03 19:15 | DVHPN2 ---
Progress Note - Dictate Date Seen: Jun 03, 2024 (Late entry Patient was seen at 9:00 a.m.) Medical Necessity Reason Pt with a Central, PICC or Fol: No Subjective Patient is stable and tolerating a diet There was no nausea vomiting today Patient stated Carafate helped with the upper GI symptoms EGD findings findings reviewed including small hiatal hernia erosive esophagitis and gastroduodenitis Patient was told to avoid aspirin NSAIDs and lifestyle and dietary modifications for GERD were discussed Patient was reassured that she does not need any immediate surgery for a hiatal hernia vital signs Vital Sign Date Time Temp Pulse Resp B/P (MAP) Pulse Ox O2 Delivery O2 Flow Rate FiO2 06/03/24 15:50 36.7 72 16 94 06/03/24 13:48 Room Air 0.0 06/03/24 13:48 21 06/03/24 13:00 138/50 (79) Total Intake and Output 06/02/24 06/02/24 06/03/24 15:00 23:00 07:00 Intake Total 240 ml 1150 ml Output Total 0 ml Balance 240 ml 1150 ml objective Gen: 68-year-old female no distress. Skin: Warm, dry, normal color and texture, no rash. HEENT: Normocephalic atraumatic, mucous membranes moist and pink. Neck: Cervical and supraclavicular nodes normal without enlargement, trachea is midline, thyroid gland is normal without masses. Pulmonary: Clear to auscultation and percussion bilaterally. Cardiac: Regular rate and rhythm. No murmur Abdomen: Soft, nontender, nondistended, bowel sounds present all 4 quadrants, no guarding, no rigidity, no organomegaly. Extremities: No cyanosis, clubbing, no edema Neuro: Cranial nerves II through XII grossly intact, normal affect and speech, no focal motor deficits. laboratory and microbiology Laboratory Tests 06/02/24 18:02 06/02/24 05:26 Test 06/02/24 05:26 Range/Units Serum Glucose 99 74-106 mg/dL Problems(with codes): (1) Elevated troponin (2) ACS (acute coronary syndrome) (3) GERD (gastroesophageal reflux disease) (4) Hyperglycemia Prognosis Plan Patient was given reassurance Continue Protonix 40 mg p.o. daily Carafate suspension 1 g p.o. twice a day Lifestyle and dietary modifications for GERD Outpatient follow up with me in 4-6 weeks or as needed Discharge planning as per hospitalist Plan discussed with: Patient, Other (Nurse and Dr. Berry) STANTON ROSALES MD Jun 03, 2024 19:15
== END 2024-06-03 18:40 | disposition home or self-care (01) | DRG 380 ==
LOC: ER 14:53 → TELE 22:32 → EAST 06-01 15:02
PROVIDERS: ADMIT Student in an Organized Health Care Education/Training Program; ATTEND Student in an Organized Health Care Education/Training Program
PROC: 0DB68ZX Excision of Stomach, Via Natural or Artificial Opening Endoscopic, Diagnostic (ICD-10-PCS; 2024-06-02)
PROC: 0DB48ZX Excision of Esophagogastric Junction, Via Natural or Artificial Opening Endoscopic, Diagnostic (ICD-10-PCS; 2024-06-02)
PROC: 0DB98ZX Excision of Duodenum, Via Natural or Artificial Opening Endoscopic, Diagnostic (ICD-10-PCS; principal; 2024-06-02 15:05)
DX: K22.11 Ulcer of esophagus with bleeding (principal); I21.A1 Myocardial infarction type 2; I50.30 Unspecified diastolic (congestive) heart failure; I24.9 Acute ischemic heart disease, unspecified; K57.31 Diverticulosis of large intestine without perforation or abscess with bleeding; K25.4 Chronic or unspecified gastric ulcer with hemorrhage; K29.71 Gastritis, unspecified, with bleeding; K29.81 Duodenitis with bleeding; K26.4 Chronic or unspecified duodenal ulcer with hemorrhage; K21.9 Gastro-esophageal reflux disease without esophagitis; R13.10 Dysphagia, unspecified; I25.10 Atherosclerotic heart disease of native coronary artery without angina pectoris; I16.0 Hypertensive urgency; E78.5 Hyperlipidemia, unspecified; E11.65 Type 2 diabetes mellitus with hyperglycemia; J45.909 Unspecified asthma, uncomplicated; E66.01 Morbid (severe) obesity due to excess calories; I65.23 Occlusion and stenosis of bilateral carotid arteries; K44.9 Diaphragmatic hernia without obstruction or gangrene; E11.42 Type 2 diabetes mellitus with diabetic polyneuropathy; I11.0 Hypertensive heart disease with heart failure; I25.2 Old myocardial infarction; Z95.1 Presence of aortocoronary bypass graft; Z88.0 Allergy status to penicillin; Z83.3 Family history of diabetes mellitus; Z82.49 Family history of ischemic heart disease and other diseases of the circulatory system; Z68.30 Body mass index [BMI] 30.0-30.9, adult
CPT/HCPCS: 36415; 71045; 74176; 80048; 80053; 81001; 82962; 83735; 84484; 85025; 87081; 92610; 93005; 93306; 94640; G0378; J1815; J2250; J2405; J2704